=== PATIENT | male | born 1935 | race Caucasian/White ===

== ENCOUNTER 2016-09-05 08:15 | Day surgery (SDC) | payer MEDICARE, OTHER ==
[2016-09-04 10:42] VITALS: BP 115/71
[~2016-09-05] VITALS: Ht 182.9 cm; Wt 73.0 kg
[~2016-09-05 08:15] MED LIST: ASPI-496 PO; ASPI-621 PO; ATOR80TA75 PO; DEXL60CA PO; LISI-170 PO; OMEP-110 PO; OMEP40CA6 PO; SILO8CAP PO; SIMV20TA3 PO
[2016-09-05] MEDS ORDERED: LACTATED RINGERS 1,000 ML IV SCH (08:43)
[2016-09-05 08:47] VITALS: BP 115/71
[2016-09-05] MEDS ORDERED: PROPOFOL 10 MG/ML, 20ML ONE (10:05)
[2016-09-05] MEDS ORDERED: OXYcodone 5 MG/5 ML ORAL.SOL UDC PO PRN (10:30)
[2016-09-05] MEDS ORDERED: HYDROmorphone 1 MG/ML, 1ML IV PRN (10:30)
[2016-09-05] MEDS ORDERED: FENTANYL PF 100 MCG/2ML IV PRN (10:30)
[2016-09-05] MEDS ORDERED: hydrALAzine 20 MG/ML, 1ML IV PRN (10:30)
[2016-09-05] MEDS ORDERED: ONDANSETRON 2MG/ML, 2ML IVPush PRN (10:30)
[2016-09-05] MEDS ORDERED: LABETALOL 5MG/ML, 20ML IV PRN (10:30)
== END 2016-09-05 12:20 | disposition home or self-care (01) ==
LOC: OUT 08:15
PROVIDERS: ATTEND Internal Medicine Geriatric Medicine
DX: K22.719 Barrett's esophagus with dysplasia, unspecified (principal); K44.9 Diaphragmatic hernia without obstruction or gangrene; I10 Essential (primary) hypertension; F17.210 Nicotine dependence, cigarettes, uncomplicated; F10.10 Alcohol abuse, uncomplicated
CPT/HCPCS: 43270; J2704; J7120

== ENCOUNTER 2017-04-02 08:03 | Inpatient (IN) | payer MEDICARE, OTHER ==
[~2017-04-02] VITALS: Ht 182.9 cm; Wt 67.3 kg
[~2017-04-02 08:03] MED LIST changes: +ATOR-2 PO; -ATOR80TA75 PO; -DEXL60CA PO; +DEXL60CA2 PO
[2017-04-02 09:15] LABS: HEMATOCRIT 39.5 % (39.2-51.8); HEMOGLOBIN 13.4 g/dL (13.7-18.0); WHITE BLOOD COUNT 18.5 x10^3/uL (3.4-10)
[2017-04-02 09:28] LABS: BLOOD UREA NITROGEN 25 mg/dL (7-18)
[2017-04-02 09:35] LABS: DIFF TOTAL CELLS COUNTED 100 CELL DIFF
[2017-04-02 09:36] LABS: VERIFY COUNTS? YES
[2017-04-02 09:36] LABS: PATH.CAST-FLAG NOT PRESENT; SPERM-FLAG NOT PRESENT; SRC-FLAG NOT PRESENT; XTAL-FLAG NOT PRESENT; YLC-FLAG NOT PRESENT
[2017-04-02] MEDS ORDERED: DOCUSATE 50 MG/5 ML ORAL SOL ONE (10:07)
[2017-04-02] MEDS ORDERED: CEFTRIAXONE PMX 1GM/50ML 50 ML ONE (10:22)
[2017-04-02] MEDS ORDERED: CEFTRIAXONE PMX 1GM/50ML 50 ML IVPB ONE (10:30)
[2017-04-02] MEDS ORDERED: SODIUM CHLORIDE FLUSH 10ML SYR IVF PRN (10:30)
[2017-04-02] MEDS ORDERED: SODIUM CHLORIDE 0.9% 1,000ML IVBOLUS ONE (10:30)
[2017-04-02] MEDS ORDERED: SODIUM CHLORIDE 0.9% 1,000 ML IV ONE (10:30)
[2017-04-02] MEDS ORDERED: SODIUM CHLORIDE FLUSH 10ML SYR IVF ONE (10:30)
[2017-04-02] MEDS: SODIUM CHLORIDE 0.9% 1,000 ML IV SCH (10:52)
[2017-04-02] MEDS ORDERED: DRON5CAP PO (10:57)
[2017-04-02] MEDS ORDERED: MULT-718 PO (10:57)
[2017-04-02] MEDS ORDERED: DONE5TAB7 PO (10:57)
[2017-04-02] MEDS ORDERED: ONDANSETRON 2MG/ML, 2ML IVPush PRN (11:00)
[2017-04-02] MEDS ORDERED: ONDANSETRON ODT 4 MG PO PRN (11:00)
[2017-04-02] MEDS ORDERED: LABETALOL 5MG/ML, 20ML IVPush PRN (11:00)
[2017-04-02] MEDS ORDERED: HYDROcodone/APAP 5/325 TABLET PO PRN (11:00)
[2017-04-02 13:31] VITALS: BP 115/78
[2017-04-02 15:32] VITALS: BP 139/67
[2017-04-02 20:14] VITALS: BP 120/70
[2017-04-02] MEDS: ENOXAPARIN 40 MG/0.4 ML SQ SCH (20:17)
[2017-04-02] MEDS: DONEPEZIL 5 MG TABLET PO SCH (20:17)
[2017-04-02] MEDS: SIMVASTATIN 20 MG TABLET PO SCH (20:17)
[2017-04-02] MEDS: DRONABINOL 5 MG CAPSULE PO SCH (20:20)
[2017-04-02] MEDS: CEFTRIAXONE PMX 2GM/50ML 50 ML IV SCH (21:41)
[2017-04-03 02:47] VITALS: BP 111/63
[2017-04-03] MEDS: SODIUM CHLORIDE 0.9% 1,000 ML IV SCH ×2 (03:36→13:00)
[2017-04-03 07:32] LABS: HEMATOCRIT 34.4 % (39.2-51.8); HEMOGLOBIN 11.7 g/dL (13.7-18.0); WHITE BLOOD COUNT 11.3 x10^3/uL (3.4-10)
[2017-04-03 07:42] LABS: BLOOD UREA NITROGEN 23 mg/dL (7-18)
[2017-04-03] MEDS: DRONABINOL 5 MG CAPSULE PO SCH ×2 (10:14→20:54)
[2017-04-03] MEDS: MULTIVITAMINS WITH IRON TABLET PO SCH (10:14)
[2017-04-03] MEDS ORDERED: CARBAMIDE PEROXIDE EAR DROPS 6.5%, 15ML EACH EAR PRN (13:00)
[2017-04-03 13:04] VITALS: BP 119/71
[2017-04-03 20:05] VITALS: BP 125/67
[2017-04-03] MEDS: DONEPEZIL 5 MG TABLET PO SCH (20:54)
[2017-04-03] MEDS: SIMVASTATIN 20 MG TABLET PO SCH (20:54)
[2017-04-03] MEDS: ENOXAPARIN 40 MG/0.4 ML SQ SCH (20:55)
[2017-04-03] MEDS: CEFTRIAXONE PMX 2GM/50ML 50 ML IV SCH (21:59)
[2017-04-04 02:54] VITALS: BP 118/55
[2017-04-04 04:57] LABS: HEMATOCRIT 34.9 % (39.2-51.8); WHITE BLOOD COUNT 8.3 x10^3/uL (3.4-10)
[2017-04-04 04:58] LABS: BLOOD UREA NITROGEN 22 mg/dL (7-18)
[2017-04-04 08:07] VITALS: BP 143/73
[2017-04-04] MEDS: MULTIVITAMINS WITH IRON TABLET PO SCH (08:49)
[2017-04-04] MEDS: DRONABINOL 5 MG CAPSULE PO SCH ×2 (08:49→20:14)
[2017-04-04] MEDS ORDERED: PNEUMOCOCCAL 23 VACCINE IM-VACC ONE (16:30)
[2017-04-04 17:01] VITALS: BP 137/75
[2017-04-04] MEDS: DONEPEZIL 5 MG TABLET PO SCH (20:14)
[2017-04-04] MEDS: ENOXAPARIN 40 MG/0.4 ML SQ SCH (20:14)
[2017-04-04] MEDS: SIMVASTATIN 20 MG TABLET PO SCH (20:14)
[2017-04-04 20:19] VITALS: BP 150/85
[2017-04-04] MEDS: CEFTRIAXONE PMX 2GM/50ML 50 ML IV SCH (22:18)
[2017-04-05 03:22] VITALS: BP 153/82
[2017-04-05 05:50] LABS: HEMATOCRIT 36.9 % (39.2-51.8); HEMOGLOBIN 12.4 g/dL (13.7-18.0); WHITE BLOOD COUNT 8.9 x10^3/uL (3.4-10)
[2017-04-05 06:11] LABS: BLOOD UREA NITROGEN 21 mg/dL (7-18)
[2017-04-05 07:47] VITALS: BP 117/75
[2017-04-05] MEDS: MULTIVITAMINS WITH IRON TABLET PO SCH (10:03)
[2017-04-05] MEDS: DRONABINOL 5 MG CAPSULE PO SCH ×2 (10:06→20:44)
[2017-04-05] MEDS ORDERED: CEFD300C37 PO (10:29)
[2017-04-05] MEDS ORDERED: CARB-136 EACH EAR (10:30)
[2017-04-05 14:13] VITALS: BP 133/73
[2017-04-05] MEDS ORDERED: LIDOCAINE 1%, 20ML ONE (17:56)
[2017-04-05 18:49] VITALS: BP 133/74
[2017-04-05] MEDS: DONEPEZIL 5 MG TABLET PO SCH (20:43)
[2017-04-05] MEDS: SIMVASTATIN 20 MG TABLET PO SCH (20:43)
[2017-04-05] MEDS: ENOXAPARIN 40 MG/0.4 ML SQ SCH (20:44)
[2017-04-05] MEDS ORDERED: CEFTRIAXONE 2 GM in DEXTROSE 5% 50 ML IV SCH (22:00)
[2017-04-06 02:07] VITALS: BP 136/74
[2017-04-06 07:18] VITALS: BP 151/82
[2017-04-06] MEDS: MULTIVITAMINS WITH IRON TABLET PO SCH (09:50)
[2017-04-06] MEDS: DRONABINOL 5 MG CAPSULE PO SCH (09:50)
[2017-04-06] MEDS ORDERED: DOCUSATE 50 MG/5 ML, 10ML UDC PO PRN (11:30)
[2017-04-06] MEDS ORDERED: DOCUSATE 100 MG CAPSULE ONE (11:30)
[2017-04-06 12:56] VITALS: BP 118/70
[2017-04-06 14:15] VITALS: BP 105/66
== END 2017-04-06 14:17 | DRG 871 ==
LOC: ED 10:29 → 4NOR 10:30 → ED 11:26 → 4NOR 11:51 → ED 11:51
PROVIDERS: ADMIT Family Medicine; ATTEND Family Medicine
PROC: 0S9C3ZZ Drainage of Right Knee Joint, Percutaneous Approach (ICD-10-PCS; principal; 2017-04-05)
DX: A41.9 Sepsis, unspecified organism (principal); E43 Unspecified severe protein-calorie malnutrition; N17.9 Acute kidney failure, unspecified; E86.0 Dehydration; D64.9 Anemia, unspecified; E86.1 Hypovolemia; F03.90 Unspecified dementia, unspecified severity, without behavioral disturbance, psychotic disturbance, mood disturbance, and anxiety; E87.1 Hypo-osmolality and hyponatremia; S51.012A Laceration without foreign body of left elbow, initial encounter; N30.90 Cystitis, unspecified without hematuria; W18.30XA Fall on same level, unspecified, initial encounter; E78.5 Hyperlipidemia, unspecified; D32.9 Benign neoplasm of meninges, unspecified; H91.90 Unspecified hearing loss, unspecified ear; I12.9 Hypertensive chronic kidney disease with stage 1 through stage 4 chronic kidney disease, or unspecified chronic kidney disease; Z66 Do not resuscitate; K21.9 Gastro-esophageal reflux disease without esophagitis; M17.11 Unilateral primary osteoarthritis, right knee; N18.3 Chronic kidney disease, stage 3 (moderate); R65.20 Severe sepsis without septic shock; Y93.89 Activity, other specified; Z23 Encounter for immunization; Y92.89 Other specified places as the place of occurrence of the external cause; Z87.891 Personal history of nicotine dependence; Z79.899 Other long term (current) drug therapy; Z68.20 Body mass index [BMI] 20.0-20.9, adult
CPT/HCPCS: 10160; 36415; 70450; 71010; 75989; 80048; 81001; 82040; 83605; 83735; 85025; 85810; 87040; 87070; 87077; 87086; 87186; 87205; 89050; 89060; 90732; 93005; 99285; J0696; J1650; J3490; Q0167; J7030

== ENCOUNTER 2018-10-17 13:14 | Emergency (ER) | payer MEDICARE, OTHER ==
[~2018-10-17] VITALS: Ht 182.9 cm; Wt 65.7 kg
[~2018-10-17 13:14] MED LIST changes: -ASPI-621 PO; +ASPI81TA45 PO; +CARB-136 EACH EAR; +CEFD300C37 PO; +DONE5TAB7 PO; +DRON5CAP PO; +MULT-718 PO; -SILO8CAP PO; +SILO8CAP2 PO
[2018-10-17 13:19] VITALS: BP 104/62
== END 2018-10-17 15:30 | disposition home or self-care (01) ==
LOC: ED 15:24
DX: S20.211A Contusion of right front wall of thorax, initial encounter (principal); W01.0XXA Fall on same level from slipping, tripping and stumbling without subsequent striking against object, initial encounter; Y93.89 Activity, other specified; Y92.009 Unspecified place in unspecified non-institutional (private) residence as the place of occurrence of the external cause; Y99.8 Other external cause status
CPT/HCPCS: 71250; 72128; 99284

== ENCOUNTER 2019-03-14 14:33 | Emergency (ER) | payer MEDICARE ==
[~2019-03-14] VITALS: Ht 182.9 cm; Wt 75.0 kg
[~2019-03-14 14:33] MED LIST changes: +IBUP200C8 PO; +OMEP40CA42 PO; -OMEP40CA6 PO; +SERT50TA28 PO
[2019-03-14 14:36] VITALS: BP 141/90
--- NOTE | 2019-03-14 14:44 | NUR ---
PT BIB [facility] FOR MECHANICAL GLF. PT WAS WALKING WITH HIS WALKER WHEN HE FELL. PT ALREADY IN A CERVICAL COLLAR AT TIME OF INJURY DUE TO HISTORY OF CERVICAL FRACTURE. LACERATION TO RIGHT EYEBROW. PT DENIES ANY OTHER INJURY OR SOURCE OF BODILY PAIN. NO INJURY NOTED ON INITIAL SKIN SWEEP. ATTACHED TO MONITORS, DRESSED IN GOWN AND PROVIDED WITH WARM BLANKETS. AWAITING ERP AT THIS TIME.
[2019-03-14] MEDS ORDERED: LIDOCAINE 1%-EPI 1:100K, 20ML SQ ONE (15:30)
[2019-03-14] MEDS ORDERED: LIDOCAINE 1%-EPI 1:100K, 20ML ONE (15:37)
--- NOTE | 2019-03-14 15:44 | NUR ---
LUCA PATEL IN NOW SUTURING PT.
--- NOTE | 2019-03-14 16:11 | NUR ---
PT BACK IN ROOM.
--- NOTE | 2019-03-14 17:51 | NUR ---
pt stood at the bedside for voiding. standby assist.
== END 2019-03-14 18:31 | disposition home or self-care (01) ==
LOC: ED 18:28
DX: S01.81XA Laceration without foreign body of other part of head, initial encounter (principal); K21.9 Gastro-esophageal reflux disease without esophagitis; I10 Essential (primary) hypertension; W19.XXXA Unspecified fall, initial encounter; Y93.89 Activity, other specified; Y92.098 Other place in other non-institutional residence as the place of occurrence of the external cause; Y99.8 Other external cause status
CPT/HCPCS: 12053; 70450; 70486; 72125; 99284

== ENCOUNTER 2019-03-21 01:18 | Inpatient (IN) | payer MEDICARE ==
[~2019-03-21] VITALS: Ht 185.4 cm; Wt 66.2 kg
[2019-03-21] MEDS ORDERED: LANS30CA PO (01:48)
[2019-03-21] MEDS ORDERED: LIDOCAINE 1%-EPI 1:100K, 20ML INFIL ONE (02:00)
[2019-03-21] MEDS ORDERED: LIDOCAINE 1%-EPI 1:100K, 20ML ONE (02:18)
--- NOTE | 2019-03-21 02:23 | NUR ---
PT BACK FROM CT. PT IN HOSPITAL GOWN. PT 0ON VITALS MONITORS. DAUTGHER AT BEDSIDE.
[2019-03-21 02:35] LABS: BASOPHILS # (AUTO) 0.04 x10^3/uL (0-0.1); BASOPHILS % (AUTO) 0 % (0-1); EOSINOPHILS % (AUTO) 5 % (1-7); LYMPHOCYTES # (AUTO) 1.47 x10^3/uL (1-3.4); LYMPHOCYTES % (AUTO) 12 % (22-44); MD NO; MEAN CORPUSCULAR HEMOGLOBIN 31.5 pg (27.5-34.5); MEAN CORPUSCULAR HGB CONC 32.4 g/dL (33.2-36.2); MEAN CORPUSCULAR VOLUME 97.1 fL (81-97); MEAN PLATELET VOLUME 6.7 fL (7.4-10.4); MONOCYTES # (AUTO) 0.78 x10^3/uL (0.2-0.8); MONOCYTES % (AUTO) 6 % (2-9); NEUTROPHILS # (AUTO) 9.51 x10^3/uL (1.8-6.8); NEUTROPHILS % (AUTO) 77 % (42-75); PLATELET COUNT 326 x10^3/uL (130-400); RED BLOOD COUNT 3.71 x10^6/uL (4.38-5.82); RED CELL DISTRIBUTION WIDTH 13.9 % (9.4-14.8)
[2019-03-21 02:45] LABS: ALBUMIN 2.7 g/dL (3.4-5.0); ANION GAP 4 mmol/L (5-15); CALCIUM 8.7 mg/dL (8.5-10.1); CHLORIDE 110 mmol/L (98-107); CREATININE 1.36 mg/dL (0.7-1.3); INTERNATIONAL NORMALIZED RATIO 1.01 (0.93-1.1); PROTHROMBIN TIME 10.6 Seconds (9.6-11.5)
--- NOTE | 2019-03-21 03:31 | NUR ---
ATTEMPTED IV X 2 WITHOUT SUCCESS. ANOTHER RN ATTEMPTING IV PLACEMENT AT THIS TIME. PT REFUSING TO WEAR C-COLLAR, STATED IT WAS UNCOMFORTABLE. PT SUTURES ABOVE RIGHT EYE REMOVED. PT HAS 7 JAYESH ON LAC.
--- NOTE | 2019-03-21 04:01 | NUR ---
HOSPITALIST IN TO SEE PT. PT REMAINS REFUSING TO WEAR C-COLLAR. PT PLACED ON TABULAR TYPIST. IV HAS BEEN ESTABLISHED
--- NOTE | 2019-03-21 04:13 | NUR ---
REPORT TO JONAS GORDON.
[2019-03-21] MEDS ORDERED: hydrALAzine 20 MG/ML, 1ML IVPush PRN (04:30)
[2019-03-21] MEDS ORDERED: PROMETHAZINE 25 MG/ML, 1ML IM PRN (04:30)
[2019-03-21] MEDS ORDERED: ONDANSETRON 2MG/ML, 2ML IVPush PRN (04:30)
[2019-03-21] MEDS ORDERED: BISACODYL 10 MG SUPP PR PRN (04:30)
[2019-03-21] MEDS ORDERED: LABETALOL 5MG/ML, 20ML IVPush PRN (04:30)
[2019-03-21] MEDS ORDERED: POLYETHYLENE GLYCOL 17 GM PACKET PO PRN (04:30)
[2019-03-21] MEDS ORDERED: ACETAMINOPHEN 325 MG TABLET PO PRN (04:30)
[2019-03-21] MEDS ORDERED: ONDANSETRON ODT 4 MG PO PRN (04:30)
[2019-03-21] MEDS ORDERED: DOCUSATE 100 MG CAPSULE PO PRN (04:30)
[2019-03-21 04:40] VITALS: BP 136/88
[2019-03-21 04:51] LABS: FREE T4 (FREE THYROXINE) 0.89 ng/dL (0.76-1.46)
[2019-03-21 04:58] LABS: HEMOGLOBIN A1C 4.7 % (4.2-6.3)
[2019-03-21] MEDS: D5%-0.9% NACL 1,000 ML IV SCH ×3 (04:59→20:33)
[2019-03-21] MEDS: PANTOPROZOLE 40MG TABLET PO SCH (09:00)
[2019-03-21] MEDS: MULTIVITAMINS/MINERALS TABLET PO SCH (09:00)
[2019-03-21] MEDS: SERTRALINE 50MG TABLET PO SCH (09:00)
[2019-03-21 14:39] VITALS: BP 158/68
[2019-03-21 19:57] VITALS: BP 134/85
[2019-03-21 20:50] LABS: MICROSCOPIC AUTO
[2019-03-21 20:52] LABS: CULTURE INDICATED? NO
[2019-03-21] MEDS: DONEPEZIL 5 MG TABLET PO SCH (21:00)
[2019-03-21] MEDS: SIMVASTATIN 20 MG TABLET PO SCH (21:00)
[2019-03-22 00:57] VITALS: BP 143/85
[2019-03-22 05:20] LABS: ALBUMIN 2.6 g/dL (3.4-5.0); ANION GAP 5 mmol/L (5-15); BASOPHILS # (AUTO) 0.03 x10^3/uL (0-0.1); BASOPHILS % (AUTO) 0 % (0-1); CALCIUM 8.3 mg/dL (8.5-10.1); CHLORIDE 110 mmol/L (98-107); EOSINOPHILS # (AUTO) 0.41 x10^3/uL (0-0.4); EOSINOPHILS % (AUTO) 5 % (1-7); LYMPHOCYTES % (AUTO) 19 % (22-44); MD NO; MEAN CORPUSCULAR HEMOGLOBIN 31.2 pg (27.5-34.5); MEAN CORPUSCULAR HGB CONC 32.9 g/dL (33.2-36.2); MEAN CORPUSCULAR VOLUME 94.9 fL (81-97); MEAN PLATELET VOLUME 6.6 fL (7.4-10.4); MONOCYTES # (AUTO) 0.68 x10^3/uL (0.2-0.8); MONOCYTES % (AUTO) 8 % (2-9); NEUTROPHILS # (AUTO) 6.17 x10^3/uL (1.8-6.8); NEUTROPHILS % (AUTO) 69 % (42-75); PLATELET COUNT 316 x10^3/uL (130-400); RED BLOOD COUNT 3.82 x10^6/uL (4.38-5.82); RED CELL DISTRIBUTION WIDTH 13.5 % (9.4-14.8)
[2019-03-22 05:25] LABS: ALANINE AMINOTRANSFERASE 15 U/L (12-78); ALKALINE PHOSPHATASE 87 U/L (45-117); BILIRUBIN,TOTAL 0.8 mg/dL (0.2-1.0); CHOL/HDL RATIO 2.7; CHOLESTEROL, TOTAL 153 mg/dL (140-239); CREATININE 1.01 mg/dL (0.7-1.3); HDL CHOL % 37 % (26-37); HDL CHOLESTEROL (DIRECT) 56 mg/dL (40-60); LDL CHOLESTEROL,CALCULATED 77 mg/dL (54-169); LDL/HDL RATIO 1.4 (0.5-3.0); TRIGLYCERIDES 100 mg/dL (50-200); VLDL CHOLESTEROL 20 mg/dL (0-25)
[2019-03-22] MEDS: D5%-0.9% NACL 1,000 ML IV SCH (06:38)
[2019-03-22] MEDS: PANTOPROZOLE 40MG TABLET PO SCH ×2 (07:30→09:39)
[2019-03-22] MEDS: MULTIVITAMINS/MINERALS TABLET PO SCH ×2 (07:30→09:39)
[2019-03-22] MEDS: SERTRALINE 50MG TABLET PO SCH ×2 (08:54→09:39)
--- NOTE | 2019-03-22 09:48 | NUR ---
REC: Regular/thins; orange sheet not indicated Addendum: 03/22/19 at 0948 by Magy SWAIN Amended: Links added.
[2019-03-22 13:52] VITALS: BP 142/80
[2019-03-22] MEDS: DONEPEZIL 5 MG TABLET PO SCH (20:43)
[2019-03-22] MEDS: AMLODIPINE 5 MG TABLET PO SCH (20:43)
[2019-03-22] MEDS: SIMVASTATIN 20 MG TABLET PO SCH (20:44)
[2019-03-22 21:55] VITALS: BP 143/78
[2019-03-23 08:52] VITALS: BP 116/76
[2019-03-23 09:57] VITALS: BP 125/72
[2019-03-23] MEDS: MULTIVITAMINS/MINERALS TABLET PO SCH (09:58)
[2019-03-23] MEDS: AMLODIPINE 5 MG TABLET PO SCH ×2 (09:58→19:56)
[2019-03-23] MEDS: SERTRALINE 50MG TABLET PO SCH (09:58)
[2019-03-23] MEDS: PANTOPROZOLE 40MG TABLET PO SCH (09:58)
[2019-03-23] MEDS: LISINOPRIL 20 MG TABLET PO SCH ×2 (09:59→19:55)
[2019-03-23 14:57] VITALS: BP 124/80
[2019-03-23] MEDS: DONEPEZIL 5 MG TABLET PO SCH (19:55)
[2019-03-23] MEDS: SIMVASTATIN 20 MG TABLET PO SCH (19:55)
[2019-03-23 20:22] VITALS: BP 120/62
[2019-03-24 01:18] VITALS: BP 130/70
[2019-03-24 07:38] VITALS: BP 128/81
[2019-03-24] MEDS: LISINOPRIL 20 MG TABLET PO SCH ×2 (09:00→19:13)
[2019-03-24] MEDS: SERTRALINE 50MG TABLET PO SCH (09:09)
[2019-03-24] MEDS: AMLODIPINE 5 MG TABLET PO SCH ×2 (09:09→19:13)
[2019-03-24] MEDS: PANTOPROZOLE 40MG TABLET PO SCH (09:09)
[2019-03-24] MEDS: MULTIVITAMINS/MINERALS TABLET PO SCH (09:09)
[2019-03-24] MEDS: GUAIFENESIN 200 MG TABLET PO SCH ×3 (11:00→19:13)
[2019-03-24 12:42] VITALS: BP 111/63
[2019-03-24 12:56] VITALS: BP 120/67
[2019-03-24 14:23] LABS: ANION GAP 10 mmol/L (5-15); CHLORIDE 106 mmol/L (98-107); CREATININE 1.42 mg/dL (0.7-1.3)
[2019-03-24 14:25] LABS: BASOPHILS # (AUTO) 0.02 x10^3/uL (0-0.1); BASOPHILS % (AUTO) 0 % (0-1); EOSINOPHILS # (AUTO) 0.05 x10^3/uL (0-0.4); EOSINOPHILS % (AUTO) 1 % (1-7); LYMPHOCYTES # (AUTO) 1.83 x10^3/uL (1-3.4); LYMPHOCYTES % (AUTO) 16 % (22-44); MD NO; MEAN CORPUSCULAR HEMOGLOBIN 31.3 pg (27.5-34.5); MEAN CORPUSCULAR HGB CONC 32.7 g/dL (33.2-36.2); MEAN CORPUSCULAR VOLUME 95.6 fL (81-97); MEAN PLATELET VOLUME 6.3 fL (7.4-10.4); MONOCYTES # (AUTO) 0.77 x10^3/uL (0.2-0.8); MONOCYTES % (AUTO) 7 % (2-9); NEUTROPHILS # (AUTO) 8.84 x10^3/uL (1.8-6.8); NEUTROPHILS % (AUTO) 77 % (42-75); PLATELET COUNT 379 x10^3/uL (130-400); RED BLOOD COUNT 3.93 x10^6/uL (4.38-5.82); RED CELL DISTRIBUTION WIDTH 13.4 % (9.4-14.8)
--- NOTE | 2019-03-24 15:55 | NUR ---
RECOMMEND: NPO -Agressive oral care Addendum: 03/24/19 at 1556 by MUNIR SWAIN Amended: Links added.
[2019-03-24] MEDS ORDERED: ALBUTEROL/IPRATROPIUM 2.5MG/0.5MG, 3 ML HHN SCH (16:00)
[2019-03-24] MEDS: SODIUM CHLORIDE 0.45% 1,000 ML IV SCH (16:42)
[2019-03-24] MEDS: AMPICILLIN/SULBACTAM 1,500 MG in SODIUM CHLORIDE 0.9% 50 ML IV SCH (16:42)
[2019-03-24] MEDS: DONEPEZIL 5 MG TABLET PO SCH (19:13)
[2019-03-24] MEDS: SIMVASTATIN 20 MG TABLET PO SCH (19:14)
[2019-03-24 19:50] VITALS: BP 124/72
[2019-03-25] MEDS: AMPICILLIN/SULBACTAM 1,500 MG in SODIUM CHLORIDE 0.9% 50 ML IV SCH ×5 (00:09→23:53)
[2019-03-25 01:35] VITALS: BP 118/65
[2019-03-25] MEDS: SODIUM CHLORIDE 0.45% 1,000 ML IV SCH ×2 (05:05→20:24)
[2019-03-25] MEDS: GUAIFENESIN 200 MG TABLET PO SCH ×4 (05:38→20:24)
[2019-03-25] MEDS ORDERED: ALBUTEROL/IPRATROPIUM 2.5MG/0.5MG, 3 ML HHN PRN (06:30)
[2019-03-25 08:14] VITALS: BP 139/74
[2019-03-25] MEDS: MULTIVITAMINS/MINERALS TABLET PO SCH (09:00)
[2019-03-25] MEDS: PANTOPROZOLE 40MG TABLET PO SCH (09:00)
[2019-03-25] MEDS: LISINOPRIL 20 MG TABLET PO SCH ×2 (09:00→20:25)
[2019-03-25] MEDS: AMLODIPINE 5 MG TABLET PO SCH ×2 (09:00→20:25)
[2019-03-25] MEDS: SERTRALINE 50MG TABLET PO SCH (09:00)
[2019-03-25 09:40] LABS: BASOPHILS % (AUTO) 0 % (0-1); EOSINOPHILS # (AUTO) 0.04 x10^3/uL (0-0.4); EOSINOPHILS % (AUTO) 0 % (1-7); LYMPHOCYTES # (AUTO) 1.98 x10^3/uL (1-3.4); LYMPHOCYTES % (AUTO) 15 % (22-44); MD NO; MEAN CORPUSCULAR HEMOGLOBIN 30.8 pg (27.5-34.5); MEAN CORPUSCULAR HGB CONC 32.3 g/dL (33.2-36.2); MEAN CORPUSCULAR VOLUME 95.1 fL (81-97); MEAN PLATELET VOLUME 6.8 fL (7.4-10.4); MONOCYTES % (AUTO) 4 % (2-9); NEUTROPHILS # (AUTO) 10.89 x10^3/uL (1.8-6.8); NEUTROPHILS % (AUTO) 81 % (42-75); PLATELET COUNT 328 x10^3/uL (130-400); RED BLOOD COUNT 4.05 x10^6/uL (4.38-5.82); RED CELL DISTRIBUTION WIDTH 13.2 % (9.4-14.8)
[2019-03-25 09:50] LABS: ALBUMIN 2.8 g/dL (3.4-5.0); ANION GAP 7 mmol/L (5-15); CALCIUM 8.8 mg/dL (8.5-10.1); CHLORIDE 105 mmol/L (98-107)
[2019-03-25 09:53] LABS: ALANINE AMINOTRANSFERASE 14 U/L (12-78); ALKALINE PHOSPHATASE 86 U/L (45-117); BILIRUBIN,TOTAL 1.1 mg/dL (0.2-1.0); CREATININE 1.23 mg/dL (0.7-1.3); TOTAL PROTEIN 6.7 g/dL (6.4-8.2)
[2019-03-25 14:25] VITALS: BP 115/69
[2019-03-25 18:38] VITALS: BP 119/73
[2019-03-25] MEDS: SIMVASTATIN 20 MG TABLET PO SCH (20:24)
[2019-03-25] MEDS: DONEPEZIL 5 MG TABLET PO SCH (20:25)
[2019-03-26 01:10] VITALS: BP_SYST 112; BP_SYST 117; BP_SYST 124; BP_DIAS 68; BP_DIAS 74; BP_DIAS 83
[2019-03-26 05:41] LABS: BASOPHILS # (AUTO) 0.04 x10^3/uL (0-0.1); BASOPHILS % (AUTO) 0 % (0-1); EOSINOPHILS # (AUTO) 0.18 x10^3/uL (0-0.4); EOSINOPHILS % (AUTO) 2 % (1-7); LYMPHOCYTES # (AUTO) 1.67 x10^3/uL (1-3.4); LYMPHOCYTES % (AUTO) 18 % (22-44); MD NO; MEAN CORPUSCULAR HEMOGLOBIN 31.1 pg (27.5-34.5); MEAN CORPUSCULAR HGB CONC 32.8 g/dL (33.2-36.2); MEAN CORPUSCULAR VOLUME 94.8 fL (81-97); MEAN PLATELET VOLUME 6.6 fL (7.4-10.4); MONOCYTES # (AUTO) 0.66 x10^3/uL (0.2-0.8); MONOCYTES % (AUTO) 7 % (2-9); NEUTROPHILS # (AUTO) 6.93 x10^3/uL (1.8-6.8); NEUTROPHILS % (AUTO) 73 % (42-75); PLATELET COUNT 332 x10^3/uL (130-400); RED BLOOD COUNT 3.82 x10^6/uL (4.38-5.82); RED CELL DISTRIBUTION WIDTH 13.2 % (9.4-14.8)
[2019-03-26 05:43] LABS: CHLORIDE 105 mmol/L (98-107)
[2019-03-26 05:54] LABS: ALANINE AMINOTRANSFERASE 14 U/L (12-78); ALBUMIN 2.5 g/dL (3.4-5.0); ALKALINE PHOSPHATASE 74 U/L (45-117); ANION GAP 6 mmol/L (5-15); BILIRUBIN,TOTAL 0.8 mg/dL (0.2-1.0); CALCIUM 8.8 mg/dL (8.5-10.1); CREATININE 1.03 mg/dL (0.7-1.3); TOTAL PROTEIN 6.1 g/dL (6.4-8.2)
[2019-03-26] MEDS: GUAIFENESIN 200 MG TABLET PO SCH ×4 (05:54→21:14)
[2019-03-26] MEDS: AMPICILLIN/SULBACTAM 1,500 MG in SODIUM CHLORIDE 0.9% 50 ML IV SCH (05:54)
[2019-03-26 08:33] VITALS: BP 137/82
[2019-03-26] MEDS: AMOXICILLIN/CLAV 875-125MG TABLET PO SCH ×2 (09:08→21:14)
[2019-03-26] MEDS: SERTRALINE 50MG TABLET PO SCH (09:09)
[2019-03-26] MEDS: LISINOPRIL 20 MG TABLET PO SCH ×2 (09:09→21:14)
[2019-03-26] MEDS: AMLODIPINE 5 MG TABLET PO SCH ×2 (09:09→21:13)
[2019-03-26] MEDS: MULTIVITAMINS/MINERALS TABLET PO SCH (09:09)
[2019-03-26] MEDS: PANTOPROZOLE 40MG TABLET PO SCH (09:09)
[2019-03-26] MEDS: SODIUM CHLORIDE 0.45% 1,000 ML IV SCH ×2 (10:01→21:14)
[2019-03-26 13:28] VITALS: BP 123/72
[2019-03-26 19:19] VITALS: BP 129/67
[2019-03-26] MEDS: DONEPEZIL 5 MG TABLET PO SCH (21:13)
[2019-03-26] MEDS: SIMVASTATIN 20 MG TABLET PO SCH (21:13)
[2019-03-27 01:46] VITALS: BP 134/72
[2019-03-27] MEDS: GUAIFENESIN 200 MG TABLET PO SCH ×4 (05:55→20:39)
[2019-03-27] MEDS: AMLODIPINE 5 MG TABLET PO SCH ×2 (07:42→20:40)
[2019-03-27] MEDS: MULTIVITAMINS/MINERALS TABLET PO SCH (07:42)
[2019-03-27] MEDS: AMOXICILLIN/CLAV 875-125MG TABLET PO SCH ×2 (07:42→20:39)
[2019-03-27] MEDS: PANTOPROZOLE 40MG TABLET PO SCH (07:42)
[2019-03-27 07:43] VITALS: BP 127/74
[2019-03-27] MEDS: LISINOPRIL 20 MG TABLET PO SCH ×2 (07:43→20:40)
[2019-03-27] MEDS: SERTRALINE 50MG TABLET PO SCH (07:43)
[2019-03-27 13:41] VITALS: BP 135/81
[2019-03-27] MEDS: SIMVASTATIN 20 MG TABLET PO SCH (20:40)
[2019-03-27] MEDS: DONEPEZIL 5 MG TABLET PO SCH (20:40)
[2019-03-27 21:25] VITALS: BP 119/72
[2019-03-28 02:33] VITALS: BP 117/73
[2019-03-28] MEDS: GUAIFENESIN 200 MG TABLET PO SCH ×2 (06:08→10:11)
[2019-03-28 07:03] VITALS: BP 128/75
[2019-03-28] MEDS: AMOXICILLIN/CLAV 875-125MG TABLET PO SCH (10:11)
[2019-03-28] MEDS: AMLODIPINE 5 MG TABLET PO SCH (10:11)
[2019-03-28] MEDS: PANTOPROZOLE 40MG TABLET PO SCH (10:11)
[2019-03-28] MEDS: MULTIVITAMINS/MINERALS TABLET PO SCH (10:11)
[2019-03-28] MEDS: SERTRALINE 50MG TABLET PO SCH (10:11)
[2019-03-28] MEDS: LISINOPRIL 20 MG TABLET PO SCH (10:11)
[2019-03-28] MEDS ORDERED: GUAI200T37 PO (11:04)
[2019-03-28] MEDS ORDERED: AMOX1TAB12 PO (11:04)
[2019-03-28] MEDS ORDERED: AMLO-150 PO (11:04)
[2019-03-28] MEDS ORDERED: LISI-170 PO (11:04)
== END 2019-03-28 12:04 | disposition hospice, home (50) | DRG 85 ==
LOC: ED 01:58 → EDIP 03:24 → CCU 04:26 → 4WST 14:47
PROVIDERS: ADMIT Internal Medicine; ATTEND Internal Medicine
PROC: 0HQ0XZZ Repair Scalp Skin, External Approach (ICD-10-PCS; principal; 2019-03-21)
DX: S06.5X0A Traumatic subdural hemorrhage without loss of consciousness, initial encounter (principal); J96.01 Acute respiratory failure with hypoxia; E43 Unspecified severe protein-calorie malnutrition; N17.0 Acute kidney failure with tubular necrosis; J69.0 Pneumonitis due to inhalation of food and vomit; S12.110A Anterior displaced Type II dens fracture, initial encounter for closed fracture; Z68.1 Body mass index [BMI] 19.9 or less, adult; S01.81XA Laceration without foreign body of other part of head, initial encounter; E78.5 Hyperlipidemia, unspecified; F03.90 Unspecified dementia, unspecified severity, without behavioral disturbance, psychotic disturbance, mood disturbance, and anxiety; I10 Essential (primary) hypertension; K21.9 Gastro-esophageal reflux disease without esophagitis; K22.70 Barrett's esophagus without dysplasia; Z51.5 Encounter for palliative care; S01.01XA Laceration without foreign body of scalp, initial encounter; W01.0XXA Fall on same level from slipping, tripping and stumbling without subsequent striking against object, initial encounter; Y93.89 Activity, other specified; Y92.041 Bathroom in boarding-house as the place of occurrence of the external cause; Y99.8 Other external cause status; Z87.891 Personal history of nicotine dependence
CPT/HCPCS: 36415; 70450; 71045; 72125; 74230; 78582; 80048; 80053; 80061; 81001; 82040; 83036; 83735; 84439; 84443; 85025; 85379; 85610; 85730; 87040; 87081; 93970; 99291; G0378; J7042; A9540; A9558; J0295